=== PATIENT | female | born 1980 | race African-American/Black ===

== ENCOUNTER 2017-06-06 16:49 | Emergency (ER) | payer OTHER ==
[2017-06-06 17:12] VITALS: BMI 27.4
--- NOTE | 2017-06-06 17:45 | PDOC ---
History of Present Illness - General Chief Complaint: Pain Stated Complaint: PAIN, ACUTE () Time Seen by Provider: 06/06/17 17:41 History Source: Patient - History of Present Illness Timing/Duration: reports: constant Quality: reports: cramping Abdominal Pain Onset Location: reports: suprapubic Past History - Past Medical History Allergies/Adverse Reactions: Allergies Allergy/AdvReac Type Severity Reaction Status Date / Time No Known Allergies Allergy Verified 06/06/17 17:12 Home Medications: Ambulatory Orders Cefuroxime Axetil [Cefuroxime] 250 mg PO BID #20 tablet 06/06/17 Other medical history: DENIES - Immunization History Immunization Up to Date: Yes - Suicide/Smoking/Psychosocial Hx Suicidal Ideation: No Smoking History: Former smoker Have you smoked in the past 12 months: No If you are a former smoker, when did you quit?: 2006 Information on smoking cessation initiated: No Hx Alcohol Use: No Drug/Substance Use Hx: No Substance Use Type: None Review of Systems - Review of Systems Constitutional: No: Chills, Fever ABD/GI: Yes: Abdominal cramping. No: Nausea, Vomiting : No: Dysuria, Flank Pain, Hematuria *Physical Exam - Vital Signs Last Vital Signs Temp Pulse Resp BP Pulse Ox 98.9 F 91 H 17 143/72 100 06/06/17 17:08 06/06/17 17:08 06/06/17 17:08 06/06/17 17:08 06/06/17 17:08 - Physical Exam General Appearance: Yes: Appropriately Dressed. No: Apparent Distress HEENT: positive: Normal Voice Neck: positive: Supple Respiratory/Chest: negative: Respiratory Distress Female Pelvic Exam: positive: normal external exam, cervical os closed, normal adnexa, discharge (trace thin white discharge). negative: CMT, lesions, adnexal tenderness, vaginal bleeding Gastrointestinal/Abdominal: positive: Normal Bowel Sounds, Soft. negative: Tender, Distended, Guarding, Rebound Integumentary: positive: Dry, Warm Neurologic: positive: Fully Oriented, Alert, Normal Mood/Affect Medical Decision Making - Medical Decision Making 06/06/17 17:44 37 yo F, , ~14 weeks by dates, here w/ abd cramping radiating to lower back this am. No vaginal bleeding, dysuria, nausea, vomiting, fever or chills. No care as of yet for unclear reasons See exam 2nd trimester pain No /US this No vag bleed No trauma Stable and well alysha w/ benign abd and unremarkable pelvic exam -ua -beta -US 06/06/17 18:39 Signed out to EMMA Lomax pending w/u 06/06/17 18:40 *DC/Admit/Observation/Transfer Diagnosis at time of Disposition: Second trimester , UTI (urinary tract infection) - Discharge Dispostion Disposition: HOME - Prescriptions Prescriptions: Cefuroxime Axetil [Cefuroxime] 250 mg PO BID #20 tablet - Patient Instructions Printed Discharge Instructions: DI for Urinary Tract Infection (UTI) Additional Instructions: take cefuroxime as ordered. follow up with your doctor as soon as possible. return to the ER if symptoms worsen. - Post Discharge Activity Work/School Note: Back to Work
[2017-06-06] MEDS ORDERED: ACETAMINOPHEN 325 MG TABLET (FP) PO ONE (17:53)
[2017-06-06] MEDS ORDERED: ACETAMINOPHEN 325 MG TABLET (FP) ONE (18:02)
[2017-06-06 18:25] LABS: URINE APPEARANCE SLCLOUDY; URINE BILIRUBIN NEGATIVE (NEGATIVE); URINE BLOOD 1+ (NEGATIVE); URINE COLOR YELLOW; URINE GLUCOSE (UA) NEGATIVE (NEGATIVE); URINE KETONE NEGATIVE (NEGATIVE); URINE NITRITE NEGATIVE (NEGATIVE); URINE UROBILINOGEN NEGATIVE mg/dL (0.2-1.0)
[2017-06-06 18:34] LABS: URINE LEUK ESTERASE 3+ (NEGATIVE); URINE PROTEIN 2+ (NEGATIVE)
[2017-06-06 18:36] LABS: URINE BACTERIA MODERATE /hpf (NONE SEEN); URINE HYALINE CAST 1 /lpf; URINE MUCUS FEW; URINE RBC 25 /hpf (0-3); URINE WBC 208 /hpf (3-5)
--- NOTE | 2017-06-06 19:13 | PDOC ---
*Physical Exam - Vital Signs Last Vital Signs Temp Pulse Resp BP Pulse Ox 98.9 F 91 H 17 143/72 100 06/06/17 17:08 06/06/17 17:08 06/06/17 17:08 06/06/17 17:08 06/06/17 17:08 ED Treatment Course - ADDITIONAL ORDERS Additional order review: Laboratory Results 06/06/17 06/06/17 18:00 17:30 Beta HCG, Quant 36027.9 Urine Color Yellow Urine Appearance Slcloudy Urine pH 7.0 Urine Protein 2+ H Urine Glucose (UA) Negative Urine Ketones Negative Urine Blood 1+ H Urine Nitrite Negative Urine Bilirubin Negative Urine Urobilinogen Negative Urine RBC 25 Urine WBC 208 Ur Epithelial Cells Rare Urine Bacteria Moderate Hyaline Casts 1 Urine Mucus Few - Medications Given in the ED: ED Medications Discontinued Medications Generic Name Dose Route Start Last Admin Trade Name Freq PRN Reason Stop Dose Admin Acetaminophen 650 mg 06/06/17 17:53 06/06/17 18:14 Tylenol - PO 06/06/17 17:54 650 mg ONCE ONE Administration Medical Decision Making - Medical Decision Making 06/06/17 19:12 Patient seen and evaluated with the nurse practitioner. I agree with the overall evaluation, assessment, and management with the following summary of visit: 37-year-old female about 14 weeks gestation presents with atraumatic lower abdominal discomfort without bleeding or cramping, no urinary complaints. Agree with exam as noted UA/HCG/ultrasound. dispo accordingly 06/06/17 19:14 UA + with elevated WBC. Urine culture sent, will treat with abx for UTI in . otherwise well appearing with stable VS, trial of outpt abx. *DC/Admit/Observation/Transfer Diagnosis at time of Disposition: Second trimester
--- NOTE | 2017-06-06 19:17 | PDOC ---
*Physical Exam - Vital Signs Last Vital Signs Temp Pulse Resp BP Pulse Ox 98.9 F 91 H 17 143/72 100 06/06/17 17:08 06/06/17 17:08 06/06/17 17:08 06/06/17 17:08 06/06/17 17:08 ED Treatment Course - ADDITIONAL ORDERS Additional order review: Laboratory Results 06/06/17 06/06/17 18:00 17:30 Beta HCG, Quant 67597.9 Urine Color Yellow Urine Appearance Slcloudy Urine pH 7.0 Urine Protein 2+ H Urine Glucose (UA) Negative Urine Ketones Negative Urine Blood 1+ H Urine Nitrite Negative Urine Bilirubin Negative Urine Urobilinogen Negative Urine RBC 25 Urine WBC 208 Ur Epithelial Cells Rare Urine Bacteria Moderate Hyaline Casts 1 Urine Mucus Few - Medications Given in the ED: ED Medications Discontinued Medications Generic Name Dose Route Start Last Admin Trade Name Freq PRN Reason Stop Dose Admin Acetaminophen 650 mg 06/06/17 17:53 06/06/17 18:14 Tylenol - PO 06/06/17 17:54 650 mg ONCE ONE Administration Medical Decision Making - Medical Decision Making 06/06/17 UA: elevated WBC with many bacteria. will treat with IV Ceftriaxone. abdominal pain in . kvng nichole? US wnl. will d/c home to follow up with outpatient dedicated driver *DC/Admit/Observation/Transfer Diagnosis at time of Disposition: Second trimester UTI (urinary tract infection) Qualifiers: Urinary tract infection type: acute cystitis Hematuria presence: without hematuria Qualified Code(s): N30.00 - Acute cystitis without hematuria - Discharge Dispostion Disposition: HOME - Prescriptions Prescriptions: Cefuroxime Axetil [Cefuroxime] 250 mg PO BID #20 tablet - Patient Instructions Printed Discharge Instructions: DI for Urinary Tract Infection (UTI) Additional Instructions: take cefuroxime as ordered. follow up with your doctor as soon as possible. return to the ER if symptoms worsen. - Post Discharge Activity Work/School Note: Back to Work
[2017-06-06] MEDS ORDERED: SODIUM CHLORIDE 1,000 ML IV STA (19:19)
[2017-06-06] MEDS ORDERED: CEFTRIAXONE 1 GM in DEXTROSE 5%-WATER - 50 ML IVPB ONE (19:19)
[2017-06-06] MEDS ORDERED: CEFTRIAXONE 50 ML ONE (19:46)
[2017-06-06 20:42] VITALS: BP 106/56; PULSE 92; TEMP 98.2
== END 2017-06-06 21:24 | disposition home or self-care (01) ==
LOC: JER 16:49
DX: O23.32 Infections of other parts of urinary tract in pregnancy, second trimester (principal); Z3A.14 14 weeks gestation of pregnancy
CPT/HCPCS: 36415; 76801-TC; 81003; 81015; 84702; 87086; 87186; 99283-25

== ENCOUNTER 2017-12-02 08:40 | Inpatient (IN) | payer OTHER ==
[2017-12-02] MEDS ORDERED: TUBERCULIN PPD 5 TU/0.1ML SYRINGE (IN PATIENT USE ONLY) ID ONE ×2 (09:24→11:00)
[2017-12-02 09:38] VITALS: BMI 30.5
--- NOTE | 2017-12-02 10:03 | HP ---
Past Medical History - Primary Care Physician PCP:: Dory Rodriguez - Admission Chief Complaint: 37yo P1 @ 40.4 wks, for postterm IOL, + FM, no VB, no LOF, some ctrxns History of Present Illness: 1. AMA - Matrni 21 normal, 46 XY 2. Group B.Strep UTI in for Ampicillin in labor 3.HPV positive, for repeat PAP pp 4. Tobacco and Alcohol use early in 5. Flu Shot 07/04/17 6. Tdap 10/03/17 History Source: Patient Limitations to Obtaining History: No Limitations - Past Medical History ...: 2 ...Para: 1 (2000 , Female, 7lb) ...Term: 1 ...LMP: 02/24/17 ... 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 History of Recent Travel: No Home Medications - Allergies Allergies/Adverse Reactions: Allergies Allergy/AdvReac Type Severity Reaction Status Date / Time No Known Allergies Allergy Verified 12/02/17 18:24 - Home Medications Home Medications: Ambulatory Orders Vit Calc,Iron,Folic [ Vitamins] 1 each PO DAILY 12/02/17 Review of Systems - Review of Systems Constitutional: reports: No Symptoms Eyes: reports: No Symptoms HENT: reports: No Symptoms Neck: reports: No Symptoms Cardiovascular: reports: No Symptoms Respiratory: reports: No Symptoms Gastrointestinal: reports: No Symptoms Genitourinary: reports: No Symptoms Breasts: reports: No Symptoms Reported Musculoskeletal: reports: No Symptoms Integumentary: reports: No Symptoms Neurological: reports: No Symptoms Endocrine: reports: No Symptoms Hematology/Lymphatic: reports: No Symptoms Psychiatric: reports: No Symptoms Physical Exam - Maternity Constitutional: Yes: Well Nourished Eyes: Yes: WNL, Conjunctiva Clear HENT: Yes: WNL, Atraumatic, Normocephalic Neck: Yes: WNL, Supple, Trachea Midline Cardiovascular: Yes: WNL, Regular Rate and Rhythm Lungs: Clear to auscultation Breast(s): Yes: WNL - Abdominal Exam/OB Fundal Height: 40 (EFW - 6.5lb) Presentation: Vertex Contractions: Yes Regularity: Irregular Intensity: Mild Monitor Mode: External Heart Rate (range): 140 Heart Rate Location: Midline Category: I Accelerations: Uniform Decelerations: None - Vaginal Exam/OB Vaginal Bleediing: No Speculum Exam: No Dilatation (cm): FT Effacement (%): long Amniotic Membrane Status: Intact Presentation: Vertex/Position Station: -3 - Physical Exam Musculoskeletal: Yes: WNL Extremities: Yes: WNL Integumentary: Yes: WNL ...Motor Strength: WNL Psychiatric: Yes: WNL, Alert, Oriented Assessment/Plan 37yo P1 @ 40.4 wks for postterm IOL Fetus Category 1 FHR Mother stable Admit to L&D Send labs, IVF Cervidil places for IOL Pain management as needed
[2017-12-02 10:07] LABS: BASO % 0.4 % (0-2.0); EOS % 1.3 % (0-4.5); HEMATOCRIT 30.1 % (32.4-45.2); HEMOGLOBIN 9.8 GM/dL (10.7-15.3); LYMPH % 19.3 % (8-40); MCH 24.7 pg (25.7-33.7); MCHC 32.5 g/dl (32.0-36.0); MEAN PLT VOLUME 9.2 fl (7.5-11.1); MONO % 9.1 % (3.8-10.2); NEUT % 69.9 % (42.8-82.8); PLATELET COUNT 238 K/MM3 (134-434); RBC 3.97 M/mm3 (3.60-5.2); RDW 17.7 % (11.6-15.6); WHITE BLOOD COUNT 7.9 K/mm3 (4.0-10.0)
[2017-12-02 10:27] LABS: INR 0.96 (0.82-1.09); PROTHROMBIN TIME (PATIENT) 10.9 SEC (9.98-11.88)
[2017-12-02 10:29] LABS: ANION GAP 11 (8-16); BLOOD UREA NITROGEN 6 mg/dL (7-18); CALCIUM 8.3 mg/dL (8.5-10.1); CHLORIDE 106 mmol/L (98-107); CO2 22 mmol/L (21-32); CREATININE 0.6 mg/dL (0.55-1.02); GLUCOSE,RANDOM 67 mg/dL (74-106); POTASSIUM 3.9 mmol/L (3.5-5.1); SODIUM 139 mmol/L (136-145)
[2017-12-02 10:30] LABS: ACTIVATED PTT 29.2 SECONDS (26.9-34.4)
[2017-12-02] MEDS ORDERED: DINOPROSTONE 10 MG VAGINAL SUPPOSITORY VG ONE (11:30)
[2017-12-02] MEDS: DEXTROSE 5%-LACTATED RINGERS 1,000 ML IV SCH ×2 (15:00→22:10)
[2017-12-02] MEDS ORDERED: AMPICILLIN - 2 GM in SODIUM CHLORIDE 100 ML IVPB ONE (18:00)
[2017-12-02] MEDS ORDERED: AMPICILLIN SODIUM 2 GM VIAL ONE (18:00)
[2017-12-02] MEDS ORDERED: AMPICILLIN SODIUM 1 GM VIAL ONE (22:08)
[2017-12-02] MEDS: AMPICILLIN - 1 GM in SODIUM CHLORIDE 100 ML IVPB SCH (22:10)
--- NOTE | 2017-12-02 22:30 | PN ---
Progress Note, Labor Vaginal Exam #1 Labor Exam Date: 12/02/17 Labor Exam Time: 22:00 Heart Rate (range): 140, Category 1 FHR Dilatation: 1cm Effacement (%): 50% Amniotic Membrane Status: Intact Presentation: Vertex/Position Station: -2 Remarks: EFW 6.5lb Cervidil d/shannen Will observe for 1hr is ctx continue Q2-3 min will start Pitocin cont. Ampicillin for GBS prophylaxis
[2017-12-02] MEDS ORDERED: OXYTOCIN 30 UNITS in 0.9% NS 30 UNIT/500 ML INFUS.BAG IVPB ONE (23:18)
[2017-12-02] MEDS ORDERED: BUTORPHANOL TARTRATE 1 MG/ML VIAL IVPUSH ONE (23:20)
[2017-12-02] MEDS ORDERED: PROMETHAZINE HCL 25 MG/1 ML VIAL IVPUSH ONE (23:20)
[2017-12-02] MEDS ORDERED: OXYTOCIN 30 UNITS in 0.9% NS 30 UNIT/500 ML INFUS.BAG IVPB SCH ×2 (23:20→23:45)
[2017-12-02] MEDS ORDERED: PROMETHAZINE HCL 25 MG/1 ML VIAL ONE (23:34)
[2017-12-02] MEDS ORDERED: BUTORPHANOL TARTRATE 1 MG/ML VIAL ONE ×2 (23:34)
[2017-12-03] MEDS ORDERED: AMPICILLIN SODIUM 1 GM VIAL ONE (01:59)
[2017-12-03] MEDS: AMPICILLIN - 1 GM in SODIUM CHLORIDE 100 ML IVPB SCH (02:03)
[2017-12-03] MEDS ORDERED: OXYTOCIN 20 UNITS in 0.9% NS 20 UNIT/1,000 ML INFUS.BAG IV SCH (03:45)
--- NOTE | 2017-12-03 03:45 | PN ---
Delivery - Delivery Vaginal Delivery: No Problems Type of Anesthesia: General, None Episiotomy/Laceration: None EBL (cc): 200 Delivery, Single - Stages of Labor Date 2nd Stage Initiated: 12/03/17 Time 2nd Stage Initiated: 03:16 Date of Delivery: 12/03/17 Time of Delivery: 03:24 Date Placenta Delivered: 12/03/17 Time Placenta Delivered: 03:30 Placenta: Yes: Spontaneous - Condition of Infant Upholsterer Inside/Cardiac Nurse Practitioner Present: No Gender: Male Weight: 6 lb 14 oz Position: OA - 1 Minute Total Score: 8 5 Minutes Total Score: 9 - Feeding Plan Initial Plan: Exclusive throughout hospitalization Benefits of Exclusively reinforced: Yes
[2017-12-03] MEDS ORDERED: OXYTOCIN 20 UNITS in 0.9% NS 20 UNIT/1,000 ML INFUS.BAG IV ONE (03:49)
[2017-12-03] MEDS ORDERED: WITCH HAZEL 50% (TUCKS) 40 PAD/JAR PAD TP PRN ×2 (04:35→08:21)
[2017-12-03] MEDS ORDERED: BENZOCAINE 28 GM HEMORRHOIDAL OINTMENT TP PRN ×2 (04:35→08:21)
[2017-12-03] MEDS ORDERED: ACETAMINOPHEN 325 MG TABLET (FP) PO PRN ×2 (04:35→08:21)
[2017-12-03] MEDS ORDERED: BENZOCAINE 20% 57 GM BOTTLE TP PRN ×2 (04:35→08:21)
[2017-12-03] MEDS ORDERED: METHYLERGONOVINE MALEATE 0.2 MG/1 ML AMP IM PRN ×2 (04:35→08:21)
[2017-12-03] MEDS ORDERED: IBUPROFEN 600 MG TABLET (FP) PO PRN ×2 (04:35→08:21)
[2017-12-03] MEDS ORDERED: BISACODYL 10 MG SUPP.RECT RC PRN ×2 (04:35→08:21)
[2017-12-03] MEDS ORDERED: D5W-LR W/ 20 UNITS OXYTOCIN 20 UNIT/1,000 ML INFUS.BAG IV SCH (08:30)
[2017-12-03] MEDS: PRENATAL VITAMINS W/ FOLIC ACID TABLET (FP) PO SCH (09:50)
[2017-12-03] MEDS: FERROUS SO4 325 MG TABLET (FP) PO SCH ×2 (09:50→22:58)
[2017-12-04] MEDS ORDERED: SENNOSIDES/DOCUSATE COMBO (SENNA PLUS) TABLET (UD) PO PRN ×2 (04:35→22:00)
[2017-12-04 08:55] LABS: BASO % 0.4 % (0-2.0); EOS % 1.4 % (0-4.5); HEMATOCRIT 27.7 % (32.4-45.2); HEMOGLOBIN 9.1 GM/dL (10.7-15.3); MCH 24.8 pg (25.7-33.7); MCHC 32.7 g/dl (32.0-36.0); MEAN PLT VOLUME 9.7 fl (7.5-11.1); MONO % 8.1 % (3.8-10.2); NEUT % 68.1 % (42.8-82.8); PLATELET COUNT 268 K/MM3 (134-434); RBC 3.64 M/mm3 (3.60-5.2); WHITE BLOOD COUNT 12.5 K/mm3 (4.0-10.0)
[2017-12-04] MEDS: FERROUS SO4 325 MG TABLET (FP) PO SCH ×2 (09:40→21:09)
[2017-12-04] MEDS: PRENATAL VITAMINS W/ FOLIC ACID TABLET (FP) PO SCH (09:40)
--- NOTE | 2017-12-04 19:51 | PN ---
Post Progress Note - Subjective Subjective: 37yo P2 s/p no complains Type of Delivery: Vital Signs: Vital Signs Temperature 98.2 F 12/04/17 09:36 Pulse Rate 90 12/04/17 09:36 Respiratory Rate 20 12/04/17 09:36 Blood Pressure 119/70 12/04/17 09:36 O2 Sat by Pulse Oximetry (%) 100 12/03/17 05:20 Breast Exam: Yes: Soft Uterus: Yes: Fundus Firm Abdomen/GI: Yes: Abdomen soft Lochia: Yes: Rubra Lochia, amount: Small Extremities: Yes: Calves non-tender Perineum: Yes: Intact Activity: Ambulating - Labs Labs: CBC WBC 12.5 K/mm3 (4.0-10.0) H D 12/04/17 08:00 RBC 3.64 M/mm3 (3.60-5.2) 12/04/17 08:00 Hgb 9.1 GM/dL (10.7-15.3) L 12/04/17 08:00 Hct 27.7 % (32.4-45.2) L 12/04/17 08:00 MCV 76.0 fl (80-96) L 12/04/17 08:00 MCH 24.8 pg (25.7-33.7) L 12/04/17 08:00 MCHC 32.7 g/dl (32.0-36.0) 12/04/17 08:00 RDW 18.0 % (11.6-15.6) H 12/04/17 08:00 Plt Count 268 K/MM3 (134-434) 12/04/17 08:00 MPV 9.7 fl (7.5-11.1) 12/04/17 08:00 Neutrophils % 68.1 % (42.8-82.8) 12/04/17 08:00 Lymphocytes % 22.0 % (8-40) 12/04/17 08:00 Monocytes % 8.1 % (3.8-10.2) 12/04/17 08:00 Eosinophils % 1.4 % (0-4.5) 12/04/17 08:00 Basophils % 0.4 % (0-2.0) 12/04/17 08:00 Assessment/Plan 37yo P2 PPD # 1 s/p VSS, Afibrile Doing well h/h stable D/c in am NPV for 6wks RTO in 4-6wks
--- NOTE | 2017-12-04 19:54 | DS ---
Physical Exam-RELOCATION ASSOCIATE Vital Signs: Vital Signs Temperature 98.2 F 12/04/17 09:36 Pulse Rate 90 12/04/17 09:36 Respiratory Rate 20 12/04/17 09:36 Blood Pressure 119/70 12/04/17 09:36 O2 Sat by Pulse Oximetry (%) 100 12/03/17 05:20 Constitutional: Yes: Well Nourished Eyes: Yes: WNL HENT: Yes: WNL, Atraumatic Neck: Yes: WNL, Supple Cardiovascular: Yes: WNL, Regular Rate and Rhythm Respiratory: Yes: WNL, Regular, CTA Bilaterally Gastrointestinal: Yes: WNL, Normal Bowel Sounds, Soft Renal/: Yes: WNL Pelvis: Yes: WNL External Genitalia: Yes: Normal Cervix: Yes: Normal Uterus: Yes: Normal ....Post : Yes: Uterus firm, Uterus non-tender Breast(s): Yes: WNL Musculoskeletal: Yes: WNL Integumentary: Yes: WNL Neurological: Yes: WNL, Alert, Oriented ...Motor Strength: WNL Psychiatric: Yes: WNL, Alert, Oriented Labs: CBC, BMP 12/04/17 08:00 12/02/17 09:40 Delivery - Delivery Vaginal Delivery: No Problems Type of Anesthesia: General, None Episiotomy/Laceration: None EBL (cc): 200 Delivery, Single - Stages of Labor Date 1st Stage Initiatied: 12/02/17 Time 1st Stage Initiated: 22:45 Date 2nd Stage Initiated: 12/03/17 Time 2nd Stage Initiated: 03:16 Date of Delivery: 12/03/17 Time of Delivery: 03:24 Time Placenta Delivered: 03:30 Placenta: Yes: Spontaneous - Condition of Infant [place] 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 You may walk unlimited reina of and climb stairs. You may resume driving the car when you feel safe and comfortable behind the wheel. No sexual activity as instructed. Wound care If you have a bandage, leave it on, and keep dry for 48-72 hours. After that time discard the outer bandage. If they are tapes on the skin under the out of bandage leave them in place. They will peel off in the next 7 to 10 days. Do Not Peel them off. You may shower the day after surgery. If there are tapes present on the skin, you may shower over them. Diet There are no dietary restrictions. Eat healthy, high-fiber foods. Drink 6 to 8 glasses of liquid each day. This will assist in keeping your bowels are regular. Pain management You may take Tylenol or acetaminophen or Ibuprofen (for example, Motrin, Advil etc.) from my pain prescription medication is ordered should be taken as prescribed for moderate to severe pain. Call MD for any of the following: Severe pain not relieved by medication Fever of 101 or higher Excessive bleeding or drainage on dressing Inability to urinate Referrals: Dory Rodriguez MD [Staff Physician] - Disposition: HOME - Home Medications Comprehensive Discharge Medication List: Ambulatory Orders Vit Calc,Iron,Folic [ Vitamins] 1 each PO DAILY 12/02/17
--- NOTE | 2017-12-05 08:08 | PN ---
Post Progress Note - Subjective Subjective: Patient without acute complaints. Reports tolerating oral intake without nausea or vomiting. Ambulating without dizziness. Denies fevers or chills. Pain well controlled with oral pain medication. without difficulty. Passing flatus. Post Day: 2 Type of Delivery: Vital Signs: Vital Signs Temperature 97.6 F 12/04/17 21:00 Pulse Rate 76 12/04/17 21:00 Respiratory Rate 20 12/04/17 21:00 Blood Pressure 116/74 12/04/17 21:00 O2 Sat by Pulse Oximetry (%) 100 12/03/17 05:20 Breast Exam: Yes: Engorged Uterus: Yes: Fundus Firm, Fundus @ umbilicus Abdomen/GI: Yes: Abdomen soft, Passing flatus, Tolerating PO. No: Tender Lochia: Yes: Serosa Lochia, amount: Small Extremities: Yes: Calves non-tender. No: Edema Activity: Ambulating - Labs Labs: CBC WBC 12.5 K/mm3 (4.0-10.0) H D 12/04/17 08:00 RBC 3.64 M/mm3 (3.60-5.2) 12/04/17 08:00 Hgb 9.1 GM/dL (10.7-15.3) L 12/04/17 08:00 Hct 27.7 % (32.4-45.2) L 12/04/17 08:00 MCV 76.0 fl (80-96) L 12/04/17 08:00 MCH 24.8 pg (25.7-33.7) L 12/04/17 08:00 MCHC 32.7 g/dl (32.0-36.0) 12/04/17 08:00 RDW 18.0 % (11.6-15.6) H 12/04/17 08:00 Plt Count 268 K/MM3 (134-434) 12/04/17 08:00 MPV 9.7 fl (7.5-11.1) 12/04/17 08:00 Neutrophils % 68.1 % (42.8-82.8) 12/04/17 08:00 Lymphocytes % 22.0 % (8-40) 12/04/17 08:00 Monocytes % 8.1 % (3.8-10.2) 12/04/17 08:00 Eosinophils % 1.4 % (0-4.5) 12/04/17 08:00 Basophils % 0.4 % (0-2.0) 12/04/17 08:00 Assessment/Plan 37 yo PPD # 2 s/p , afebrile, vital signs stable, mild asymptomatic anemia, doing well 1. Patient stable for discharge home today. 2. Patient encouraged to contact MD for: - Severe pain not controlled by oral pain medication - Fevers or chills - Nausea or vomiting, intolerance of oral intake 3. Patient to follow up in office in 4-6 weeks for visit
[2017-12-05] MEDS: FERROUS SO4 325 MG TABLET (FP) PO SCH (09:17)
[2017-12-05] MEDS: PRENATAL VITAMINS W/ FOLIC ACID TABLET (FP) PO SCH (09:17)
[2017-12-05 09:35] VITALS: BP 116/75; PULSE 90; TEMP 98.2
== END 2017-12-05 14:20 | disposition home or self-care (01) | DRG 775 ==
LOC: JLDR 08:40 → J3W 12-03 05:30
PROVIDERS: ADMIT Obstetrics & Gynecology; ATTEND Obstetrics & Gynecology
PROC: 3E0P7VZ Introduction of Hormone into Female Reproductive, Via Natural or Artificial Opening (ICD-10-PCS; 2017-12-02)
PROC: 10E0XZZ Delivery of Products of Conception, External Approach (ICD-10-PCS; principal; 2017-12-03)
DX: O99.02 Anemia complicating childbirth (principal); Z3A.40 40 weeks gestation of pregnancy; Z22.330 Carrier of Group B streptococcus; Z37.0 Single live birth
CPT/HCPCS: 36415; 59409; 80048; 85025; 85610; 85730; 86593; 86850; 86900; 86901